=== PATIENT | female | born 1945 | race Hispanic/Latino ===

== ENCOUNTER 2016-09-25 09:10 | Observation (INO) | payer OTHER ==
[~2016-09-25] VITALS: Ht 152.4 cm; Wt 60.6 kg
[~2016-09-25 09:10] MED LIST: ADLT ASA LOW81 MG PO; ASPIRIN EC81 MG PO; ASPIRIN325 MG PO; ATENOLOL50 MG PO; CARVEDILOL3.125 MG PO; CIPROFLOXACN500 MG PO; EC ASPIRIN325 MG PO; FLEXERIL OR; LIORESAL10 MG/TA1 PO; LOPID600 MG PO; SIMVASTATIN40 MG PO; ULTRAM50 M1 PO; ZANTAC300 MG PO
--- NOTE | 2016-09-25 09:23 | NUR ---
PT BROUGHT STRAIGHT BACK TO ROOM 10 VIA WC.
--- NOTE | 2016-09-25 09:23 | NUR ---
PATIENT RESTING AWAITING LAB AND RADIOLOGY RESULTS PATIENT DENIES ANY CHEST PAIN AT THIS TIME
[2016-09-25] MEDS ORDERED: BACLOFEN10 MG PO (09:31)
[2016-09-25] MEDS ORDERED: MOTRIN200 MG PO (09:32)
[2016-09-25 09:37] LABS: HEMATOCRIT 38.4 % (37.0-47.0); HEMOGLOBIN 13.2 g/dl (12.0-16.0); IMMATURE GRANULOCYTES 0.2 % (0.0-1.0); MEAN CORPUSCULAR HGB 33.3 pG CALC (26.0-32.0); MEAN CORPUSCULAR HGB CONC 34.4 g/L CALC (32.0-36.0); NEUT# 3.13 thou/uL (2.00-7.15); RED BLOOD COUNT 3.96 mill/uL (4.20-5.60); RED CELL DISTRI WIDTH 12.9 % (11.5-15.5)
[2016-09-25 09:49] LABS: ANION GAP 15 (6-22 (CALC)); BUN 12 mg/dL (8-23); BUN/CREATININE RATIO 22 (12-20 (CALC)); CALCIUM 9.2 mg/dL (8.4-10.2); CARBON DIOXIDE 27 mmol/l (22-30); CHLORIDE 103 mmol/l (95-108); CREATININE 0.5 mg/dL (0.5-1.0); GFR > 60 ML/MIN (>=60 (CALC)); GFR FOR AFR.AMER. > 60 ML/MIN (>=60 (CALC)); GLUCOSE 110 mg/dL (82-115); POTASSIUM 4.1 mmol/l (3.5-5.1); SODIUM 141 mmol/l (137-146)
--- NOTE | 2016-09-25 10:30 | NUR ---
PT ASSISTED TO RESTROOM, AMBULATES WITH STABLE GAIT. URINE SPECIMEN COLLECTED. PT ASSISTED BACK TO STRETCHER, CALL LIGHT IN REACH.
--- NOTE | 2016-09-25 11:30 | NUR ---
PATIENT RESTING AWAITING ROOM ASSIGNMNET PATIENT STATES CHEST PAIN RESOLVED. PATIENT VERBALIZED UNDERSTANDING OF ADMISSION
--- NOTE | 2016-09-25 12:24 | NUR ---
REPORT DOLL TO MED SURG
[2016-09-25 12:55] VITALS: BP 145/79
--- NOTE | 2016-09-25 12:55 | NUR ---
PT.ARRIVED TO FLOOR VIA STRETCHER ACCOMPANIED BY JEFFERSON OF ED; PT.APPEARS TO BE STABLE AT THIS TIME; V/S BEING ASSESSED AND PT.BEING ORIENTED TO ROOM,CALL SYSTEM,TV AND SAFETY;
--- NOTE | 2016-09-25 13:49 | NUR ---
PT.JUST FINISHED EATING LUNCH, MEDICATED W/NORVASC ORDERED, DENIES ANY PAIN AT THIS TIME; UPRIGHT IN BED W/CALL LIGHT W/IN PLACE
--- NOTE | 2016-09-25 15:50 | NUR ---
PT.RESTING PROPPED UP IN BED W/CLICKER AT SIDE; DENIES ANY NEEDS AT THIS TIME; CALL LIGHT W/IN REACH
--- NOTE | 2016-09-25 18:27 | NUR ---
PT.RESTING IN BED, JUST FINISHED W/SUPPER TRAY; FAMILY VISITING AT BS; DENIES ANY NEEDS AT THIS TIME
[2016-09-25 19:25] VITALS: BP 152/68
--- NOTE | 2016-09-25 19:40 | NUR ---
PT RESTING IN RECLINER WITH MULTIPLE FAMILY MEMBERS AT BEDSIDE;PT IS NOTED TO BE ESTONIAN SPEAKING ONLY;PT DENIES ANY CHEST PAIN OR ABDOMINAL PAIN,BUT VERBALIZES SLIGHT TENDERNESS TO THE UPPER RIGHT QUADRANT OF HER ABDOMEN UPON PALPATION;PT EDUCATED TO CALL FOR ASSISTANCE IF PAIN OCCURS;PT ALSO EDUCATED ON PAIN SCALE AND VERBALIZES UNDERSTANDING;TELE MONITOR IN PLACE;SKIN INTACT;#20G TO RAC FLUSHED AND PATENT;ASSESSMENT COMPLETED;RESPIRATIONS EVEN AND UNLABORED ON RA;PT RE-ORIENTED TO ROOM AND CALL LIGHT SYSTEM;SAFETY PRECAUTIONS REINFORCED;CALL LIGHT WITHIN REACH;WILL CONTINUE TO MONITOR
--- NOTE | 2016-09-26 00:10 | NUR ---
PT RESTING IN BED;PT DENIES ANY CHEST PAIN AT THIS TIME;RESPIRATIONS EVEN AND UNLABORED ON RA;TELE MONITOR IN PLACE;PT DENIES ANY NEEDS AT THIS TIME;PT EDUCATED TO CALL FOR ASSISTANCE IF NEEDED;CALL LIGHT IN REACH;WILL CONTINUE TO MONITOR
[2016-09-26 00:20] VITALS: BP 114/63
[2016-09-26 04:27] VITALS: BP 119/64
--- NOTE | 2016-09-26 04:30 | NUR ---
PT APPEARS TO BE SLEEPING IN SUPINE POSITION;WOKE PT TO OBTAIN VS WITH NIGEL DAILEY;ASHLIE INTERPRETED FOR NURSE;PT DENIES ANY CHEST PAIN THIS MORNING STATING THAT SHE "SLEPT WELL";RESPIRATIONS EVEN AND UNLABORED ON RA;TELE MONITOR IN PLACE;PT DENIES ANY NEEDS BUT IS EDUCATED TO CALL FOR ASSISTANCE IF NEEDED;BED IN LOWEST POSITION WITH CALL LIGHT IN REACH;WILL CONTINUE TO MONITOR
[2016-09-26 06:09] LABS: ANION GAP 15 (6-22 (CALC)); BUN 19 mg/dL (8-23); BUN/CREATININE RATIO 36 (12-20 (CALC)); CALCIUM 9.2 mg/dL (8.4-10.2); CARBON DIOXIDE 26 mmol/l (22-30); CHLORIDE 102 mmol/l (95-108); CHOLESTEROL HDL RATIO 6.9 (<4.4 (CALC)); CREATININE 0.5 mg/dL (0.5-1.0); GFR > 60 ML/MIN (>=60 (CALC)); GFR FOR AFR.AMER. > 60 ML/MIN (>=60 (CALC)); GLUCOSE 96 mg/dL (82-115); HDL CHOLESTEROL 39 mg/dL (>=40); POTASSIUM 4.3 mmol/l (3.5-5.1); SODIUM 139 mmol/l (137-146); TOTAL CHOLESTEROL 267 mg/dl (0-199)
[2016-09-26 06:16] LABS: VLDL CHOLESTROL 116 mg/dl (0-48 (CALC))
[2016-09-26 06:30] LABS: CALCULATED LDLCHOLESTEROL 112 mg/dL (62-129 (CALC)); TOTAL TRIGLYCERIDES 578 mg/dl (30-149)
--- NOTE | 2016-09-26 07:35 | NUR ---
PT.IN BED W/TV ON AND SMILE ON HER FACE; SHE DENIES ANY PAIN AT THIS TIME, REQUESTS ANOTHER BLANKET/PROVIDED; NO S/S OF DISTRESS AT THIS TIME; BS REPORT RECEIVED FROM NIGHT NURSE; WILL F/UP W/V/S AND ASSESSMENT
[2016-09-26 08:37] VITALS: BP 121/61
--- NOTE | 2016-09-26 08:40 | NUR ---
PT.UPRIGHT IN BED, DENIES PAIN, V/S ASSESSED. RUTH CAMPBELL IN TO SEE PT.
[2016-09-26] MEDS ORDERED: ATORVASTATIN CA10 MG PO (09:40)
[2016-09-26] MEDS ORDERED: BACLOFEN10 MG PO (09:40)
[2016-09-26 10:02] VITALS: BP 121/61
--- NOTE | 2016-09-26 12:11 | NUR ---
PT.OFF FLOOR DISCHARGED IN GOOD CONDITION; IV REMOVED/SITE HEALTHY, PROFESSOR OF JOURNALISM REMOVED AND PT.WALKED OFF FLOOR ACCOMPANIED BY FAMILY MEMBER
== END 2016-09-26 12:27 | disposition home or self-care (01) | DRG 313 ==
LOC: ED 09:10 → ED-I 10:30 → ED 10:52 → MS2 10:53
PROVIDERS: Family Medicine; ADMIT Internal Medicine; ATTEND Internal Medicine
DX: R07.89 Other chest pain (principal); I25.2 Old myocardial infarction; I10 Essential (primary) hypertension; E78.5 Hyperlipidemia, unspecified; I25.10 Atherosclerotic heart disease of native coronary artery without angina pectoris; K21.9 Gastro-esophageal reflux disease without esophagitis; M50.30 Other cervical disc degeneration, unspecified cervical region
CPT/HCPCS: G0378

== ENCOUNTER 2017-02-26 19:42 | Emergency (ER) | payer SELFPAY ==
[~2017-02-26] VITALS: Ht 152.4 cm; Wt 61.2 kg
[~2017-02-26 19:42] MED LIST changes: +ATORVASTATIN CA10 MG PO; +BACLOFEN10 MG PO; +MOTRIN200 MG PO
[2017-02-26] MEDS ORDERED: ZOVIRAX800 MG PO (21:05)
[2017-02-26] MEDS ORDERED: PERCOCET 5/325M1 TAB PO (21:05)
[2017-02-26 21:42] VITALS: BP 141/79
== END 2017-02-26 21:42 | disposition home or self-care (01) | DRG 596 ==
LOC: ED 19:42
DX: B02.9 Zoster without complications (principal)